=== PATIENT | male | born 1995 | race Two or more races ===

== ENCOUNTER 2017-01-16 19:13 | Emergency (ER) | payer OTHER ==
--- NOTE | 2017-01-16 19:30 | EDM.PDOC ---
ED HPI ENT - General Chief Complaint: ENT Problem Stated Complaint: SOB; Cough; Fever; Sore Throat Time Seen by Provider: 01/16/17 19:19 Source of Information: Reports: Patient, RN, RN notes reviewed History Limitations: Reports: No limitations - History of Present Illness INITIAL COMMENTS - FREE TEXT/NARRATIVE: Patient presents to the ED at [facility] with a one week history of worsening SOB, fevers, and sore throat. Patient denies any eye or ear symptoms. Patient denies any N/V/D. Patient states he is trying to stay well hydrated with good PO fluid intake. Close contacts have been sick with similar symptoms. Fevers have ranged from 101-102 orally. Patient states he is coughing up green/ yellow appearing purulent sputum. No chest pain. No focal neurological deficits. Symptom Onset Date: 01/09/17 Timing/Duration: Reports: Getting worse Severity: moderate Location: Reports: throat Quality: Reports: Burning, Throbbing Improves with: Reports: Rest Worsens with: Reports: Breathing, Eating Associated Symptoms: Reports: shortness of breath, cough, sputum, fever/chills, loss of appetite. Denies: nausea/vomiting - Related Data Allergies/ADRs: Allergies Allergy/AdvReac Type Severity Reaction Status Date / Time No Known Allergies Allergy Verified 01/16/17 19:42 Home Meds: Home Meds Azithromycin [Zithromax] 250 mg PO DAILY #4 tablet 01/16/17 [Rx] Past Medical History - Past Health History Medical/Surgical History: Denies Medical/Surgical History Social & Family History - Tobacco Use Smoking Status *Q: Never Smoker ED ROS ENT - Review of Systems Review Of Systems: See Below Constitutional: Reports: fever, chills, decreased appetite. Denies: weakness HEENT: Reports: Throat pain, Throat swelling. Denies: Ear discharge, Ear pain, Eye pain, Rhinitis, Sinus problem, Vision change Respiratory: Reports: Shortness of Breath, Cough, Sputum. Denies: Wheezing Cardiovascular: Denies: Chest pain, Palpitations GI/Abdominal: Denies: Abdominal pain, Nausea, Vomiting Skin: Reports: no symptoms Neurological: Denies: Headache, Numbness, Paresthesia, Tingling ED EXAM, ENT - Physical Exam Exam: See Below Exam Limited By: No limitations General Appearance: alert, no apparent distress Eye Exam: bilateral eye: EOMI, normal inspection, PERRL Ears: normal external exam, normal canal, hearing grossly normal, normal TMs Nose: clear rhinorrhea Mouth/Throat: Throat pain, Throat swelling, Tonsillar erythema, Tonsillar exudates Respiratory/Chest: no respiratory distress, rhonchi Cardiovascular: regular rate, rhythm Neurological: alert, oriented Skin: Warm, Dry, Intact, Normal color, No rash Course - Vital Signs Last Recorded V/S: Last Vital Signs Temp 36.9 C 01/16/17 19:39 Pulse 67 01/16/17 19:39 Resp 16 01/16/17 19:39 BP 115/65 01/16/17 19:39 Pulse Ox 99 01/16/17 19:39 - Orders/Labs/Meds Orders: Active Orders 24 hr Category Date Time Status Chest 2V [CR] Stat Exams 01/16/17 19:31 Taken CULTURE STREP A CONFIRMATION [RM] Stat Lab 01/16/17 19:30 Results STREP SCRN A RAPID W CULT CONF [RM] Stat Lab 01/16/17 19:30 Results Departure - Departure Time of Disposition: 20:04 Disposition: Home, Self-Care 01 Condition: good Clinical Impression: Acute bronchitis Qualifiers: Bronchitis organism: unspecified organism Qualified Code(s): J20.9 - Acute bronchitis, unspecified Fever Qualifiers: Fever type: unspecified Qualified Code(s): R50.9 - Fever, unspecified Prescriptions: Azithromycin [Zithromax] 250 mg PO DAILY #4 tablet Referrals: PCP,None [Primary Care Provider] - Forms: ED Department Discharge Additional Instructions: 1. Stay well hydrated and rest 2. Change out and buy a new toothbrush 3. Do not share and drinking bottles or eating utensils 4. See your Primary as symptoms warrant - Problem List Review Problem List Initiated/Reviewed/Updated: Yes - My Orders Last 24 Hours: My Active Orders 01/16/17 19:30 CULTURE STREP A CONFIRMATION [RM] Stat STREP SCRN A RAPID W CULT CONF [RM] Stat 01/16/17 19:31 Chest 2V [CR] Stat - Assessment/Plan Last 24 Hours: My Active Orders 01/16/17 19:30 CULTURE STREP A CONFIRMATION [RM] Stat STREP SCRN A RAPID W CULT CONF [RM] Stat 01/16/17 19:31 Chest 2V [CR] Stat
[2017-01-16 19:42] VITALS: BP 115/65
[2017-01-16] MEDS ORDERED: Take Home: Azithromycin 250 MG, 2 Tab Pack PO ONE (20:06)
== END 2017-01-16 20:18 | disposition home or self-care (01) ==
LOC: VM.ED 19:13
DX: J20.9 Acute bronchitis, unspecified (principal)
CPT/HCPCS: 71020; 87081; 87880; 99284; A9270